=== PATIENT | female | born 1985 | race Caucasian/White ===

== ENCOUNTER 2017-05-11 20:51 | Inpatient (IN) | payer BC ==
[2017-05-11 23:28] LABS: ADD UMIC YES; UR ASCORBIC ACID NEGATIVE (NEGATIVE); UR BILIRUBIN (Dip) NEGATIVE (NEGATIVE); UR BLOOD (Dip) 1+ mg/dL (NEGATIVE); UR CLARITY SLIGHTLY CLOUDY (CLEAR); UR COLOR YELLOW (YELLOW); UR GLUCOSE (Dip) NEGATIVE (NEGATIVE); UR KETONES (Dip) NEGATIVE (NEGATIVE); UR LEUKOCYTE ESTERASE (Dip) NEGATIVE Leu/ul (NEGATIVE); UR MUCUS FEW /HPF (NONE SEEN); UR NITRITE (Dip) NEGATIVE (NEGATIVE); UR RBC 25 /HPF (0-5); UR SPECIFIC GRAVITY (Dip) 1.017 (1.003-1.030); UR SQUAMOUS EPITHELIAL CELL FEW /HPF (FEW); UR TOTAL PROTEIN (Dip) NEGATIVE (NEGATIVE); UR UROBILINOGEN (Dip) 2+ mg/dL (NEGATIVE); UR WBC 7 /HPF (0-5)
[2017-05-11 23:51] LABS: AMPHETAMINE/METHAMPHETAMINE POSITIVE (NEGATIVE); BARBITURATES NEGATIVE (NEGATIVE); BENZODIAZEPINES NEGATIVE (NEGATIVE); CANNABINOIDS NEGATIVE (NEGATIVE); COCAINE NEGATIVE (NEGATIVE); OPIATES POSITIVE (NEGATIVE)
[2017-05-12] MEDS ORDERED: HYDROCODONE/APAP (5/325) TAB PO (01:03)
[2017-05-12 01:43] LABS: ADD MAN DIFF? NO
[2017-05-12 01:51] LABS: BASOPHILS % 0.4 % (0.0-2.0); EOSINOPHILS # 0.2 10^3/ul (0.0-0.5); EOSINOPHILS % 3.4 % (0.0-7.0); HEMATOCRIT 30.7 % (37.0-47.0); HEMOGLOBIN 10.1 g/dl (12.0-16.0); LYMPHOCYTES % 37.1 % (15.0-51.0); MEAN CORPUSCULAR HEMOGLOBIN 28.7 pg (29.0-33.0); MEAN CORPUSCULAR HGB CONC 32.9 g/dl (32.0-37.0); MEAN CORPUSCULAR VOLUME 87.2 fl (82.0-101.0); MONOCYTE # 0.4 10^3/ul (0.3-0.9); MONOCYTES % 6.6 % (0.0-11.0); NEUTROPHIL # 2.8 10^3/ul (1.6-7.5); NEUTROPHILS % 52.1 % (39.0-77.0); PLATELET COUNT 290 10^3/UL (140-415); RED BLOOD COUNT 3.52 10^6/ul (4.20-5.40); RED CELL DISTRIBUTION WIDTH 14.1 % (11.5-14.5)
[2017-05-12 01:51] LABS: WHITE BLOOD COUNT 5.3 10^3/ul (4.8-10.8)
[2017-05-12 02:10] LABS: INR 0.88; PT RATIO 0.9
[2017-05-12 02:11] LABS: PARTIAL THROMBOPLASTIN TIME 29.2 Sec (25.0-35.0)
[2017-05-12 02:12] LABS: ALANINE AMINOTRANSFERASE 30 IU/L (13-69); ALBUMIN 3.2 g/dl (3.3-4.9); ALBUMIN/GLOBULIN RATIO 0.94; ALKALINE PHOSPHATASE 152 IU/L (42-121); ANION GAP 11 (8-16); ASPARTATE AMINO TRANSFERASE 23 IU/L (15-46); BILIRUBIN,INDIRECT 0.1 mg/dl (0-1.1); BILIRUBIN,TOTAL 0.1 mg/dl (0.2-1.3); BLOOD UREA NITROGEN 6 mg/dl (7-20); CALCIUM 8.7 mg/dl (8.4-10.2); CARBON DIOXIDE 27 mmol/L (21-31); CHLORIDE 103 mmol/L (97-110); GLUCOSE 84 mg/dl (70-220); POTASSIUM 3.5 mmol/L (3.5-5.1); SODIUM 137 mmol/L (135-144); TOTAL PROTEIN 6.6 g/dl (6.1-8.1); URIC ACID 3.6 mg/dl (3.1-7.9)
[2017-05-12] MEDS: LACTATED RINGER'S 1,000 ML IV ×2 (02:29→04:48)
[2017-05-12] MEDS: HYDROmorphONE 1 MG/ML SYG IV (02:30)
[2017-05-12 02:43] LABS: HEPATITIS B SURFACE ANTIGEN NEGATIVE (NEGATIVE)
[2017-05-12 03:02] LABS: HEPATITIS C VIRAL ANTIBODY REACTIVE (NEGATIVE); HIV 1&2 ANTIBODY NEGATIVE (NEGATIVE)
[2017-05-12] MEDS: BETAMET NA PHOS/AC(6 MG/ML) 5ML INJ IM (03:24)
[2017-05-12] MEDS ORDERED: OXYTOCIN 30 UNITS/LR 500 ML IV ×3 (09:30→12:30)
[2017-05-12] MEDS ORDERED: CLINDAMYCIN 900 MG/D5W (PMX) 50 ML IV (09:30)
[2017-05-12] MEDS ORDERED: CARBOPROST 250 MCG INJ IM (09:30)
[2017-05-12] MEDS ORDERED: MISOPROSTOL 200 MCG TAB PR (09:30)
[2017-05-12] MEDS ORDERED: METHYLERGONOVINE 0.2 MG INJ IM (09:30)
[2017-05-12] MEDS ORDERED: LACTATED RINGER'S 500 ML IV (12:30)
[2017-05-12 15:23] LABS: RAPID PLASMA REAGIN NONREACTIVE (NR)
[2017-05-16 12:01] LABS: RUBELLA ANTIBODY - IGM <20.00 AU/mL
== END 2017-05-12 17:32 | disposition left against medical advice (07) | DRG 781 ==
LOC: OBT 20:51 → L-D 20:53
DX: O41.03X0 Oligohydramnios, third trimester, not applicable or unspecified (principal); O12.03 Gestational edema, third trimester; Z3A.34 34 weeks gestation of pregnancy; Z76.5 Malingerer [conscious simulation]
CPT/HCPCS: 76815; 76816; 80053; 80307; 81001; 83036; 84560; 85025; 85610; 85730; 86592; 86703; 86762; 86803; 86850; 86900; 86901; 87340; 87522

== ENCOUNTER 2017-05-13 17:05 | Inpatient (IN) | payer BC ==
[2017-05-13] MEDS ORDERED: LACTATED RINGER'S 500 ML IV (18:30)
[2017-05-13] MEDS ORDERED: HYDROmorphONE 0.2 MG/ML PCA IV (19:15)
[2017-05-13] MEDS ORDERED: HYDROmorphONE 2 MG/ML SYG IM (19:20)
[2017-05-13] MEDS ORDERED: LACTATED RINGER'S 1,000 ML IV ×2 (21:58)
[2017-05-13] MEDS ORDERED: CARBOPROST 250 MCG INJ IM (22:00)
[2017-05-13] MEDS ORDERED: MISOPROSTOL 200 MCG TAB PR (22:00)
[2017-05-13] MEDS ORDERED: LIDOCAINE 1% (MPF) 30 ML INJ INJ (22:00)
[2017-05-13] MEDS ORDERED: METHYLERGONOVINE 0.2 MG INJ IM (22:00)
[2017-05-13] MEDS ORDERED: OXYTOCIN 30 UNITS/LR 500 ML IV ×4 (22:00→23:30)
[2017-05-13 22:18] LABS: ADD MAN DIFF? NO
[2017-05-13 22:19] LABS: WHITE BLOOD COUNT 6.9 10^3/ul (4.8-10.8)
[2017-05-13 22:20] LABS: BASOPHILS % 0.3 % (0.0-2.0); EOSINOPHILS # 0.1 10^3/ul (0.0-0.5); HEMATOCRIT 25.2 % (37.0-47.0); HEMOGLOBIN 8.5 g/dl (12.0-16.0); LYMPHOCYTES # 2.2 10^3/ul (0.8-2.9); MEAN CORPUSCULAR HEMOGLOBIN 29.4 pg (29.0-33.0); MEAN CORPUSCULAR HGB CONC 33.7 g/dl (32.0-37.0); MEAN CORPUSCULAR VOLUME 87.2 fl (82.0-101.0); MEAN PLATELET VOLUME 8.2 fl (7.4-10.4); MONOCYTE # 0.6 10^3/ul (0.3-0.9); MONOCYTES % 8.4 % (0.0-11.0); NEUTROPHILS % 57.9 % (39.0-77.0); PLATELET COUNT 281 10^3/UL (140-415); RED BLOOD COUNT 2.89 10^6/ul (4.20-5.40); RED CELL DISTRIBUTION WIDTH 14.4 % (11.5-14.5)
[2017-05-13 22:23] LABS: INR 0.91; PROTIME 12.3 Sec (11.9-14.9)
[2017-05-13 22:24] LABS: PARTIAL THROMBOPLASTIN TIME 27.2 Sec (25.0-35.0)
[2017-05-13] MEDS: LACTATED RINGER'S 500 ML IV (22:31)
[2017-05-13] MEDS: CEFAZOLIN 2 GM/50 ML (PMX) 50 ML IVPB (22:59)
[2017-05-13] MEDS ORDERED: FENTAnyl 2MCG/ML-ROPIV 0.2% 0 ML (23:33)
[2017-05-14] MEDS: CLINDAMYCIN 900 MG/D5W (PMX) 50 ML IV ×3 (00:24→14:50)
[2017-05-14] MEDS: HYDROmorphONE 2 MG/ML SYG IV (00:24)
[2017-05-14 01:44] LABS: HEPATITIS B SURFACE ANTIGEN NEGATIVE (NEGATIVE)
[2017-05-14] MEDS: HYDROmorphONE 2 MG/ML SYG IM (03:54)
[2017-05-14] MEDS: LACTATED RINGER'S 1,000 ML IV ×3 (05:57→21:15)
[2017-05-14] MEDS: CEFAZOLIN 2 GM/50 ML (PMX) 50 ML IVPB ×2 (05:57→13:30)
[2017-05-14] MEDS: LACTATED RINGER'S 500 ML IV ×2 (05:58→06:01)
[2017-05-14] MEDS ORDERED: BENZOCAINE 20% 9.5 GM GEL MM (13:00)
[2017-05-14 13:59] LABS: HIV 1&2 ANTIBODY NEGATIVE (NEGATIVE)
[2017-05-14] MEDS: BENZOCAINE MM (15:08)
[2017-05-14] MEDS: [UNRECOGNIZED DRUG - OTHER] MM (15:08)
[2017-05-14] MEDS: BETAMET NA PHOS/AC(6 MG/ML) 5ML INJ IM (17:30)
[2017-05-14 22:26] LABS: RAPID PLASMA REAGIN NONREACTIVE (NR)
[2017-05-15] MEDS: LACTATED RINGER'S 1,000 ML IV ×3 (05:15→22:10)
[2017-05-15] MEDS: DIPHENHYDRAMINE 50 MG INJ IV (13:01)
[2017-05-15] MEDS: HYDROmorphONE 2 MG/ML SYG IV (20:55)
[2017-05-15] MEDS: LACTATED RINGER'S 500 ML IV ×10 (20:59→22:10)
[2017-05-15] MEDS: CLINDAMYCIN 600 MG/D5W (PMX) 50 ML IVPB (22:45)
[2017-05-16] MEDS: DIPHENHYDRAMINE 50 MG INJ IV ×3 (00:32→17:15)
[2017-05-16] MEDS: CEFAZOLIN 2 GM/50 ML (PMX) 50 ML IVPB ×3 (00:32→15:30)
[2017-05-16] MEDS: LACTATED RINGER'S 1,000 ML IV (00:33)
[2017-05-16] MEDS: LACTATED RINGER'S 500 ML IV ×4 (01:58→13:58)
[2017-05-16] MEDS: CLINDAMYCIN 600 MG/D5W (PMX) 50 ML IVPB ×2 (06:27→13:52)
[2017-05-16] MEDS: BETAMET NA PHOS/AC(6 MG/ML) 5ML INJ IM (09:08)
[2017-05-16] MEDS ORDERED: HYDROmorphONE 1 MG/ML SYG (09:48)
[2017-05-16] MEDS: HYDROmorphONE 1 MG/ML SYG IV (10:13)
[2017-05-16 11:16] LABS: RUBELLA ANTIBODY - IGG 3.82 index
[2017-05-16 12:01] LABS: RUBELLA ANTIBODY - IGM <20.00 AU/mL
[2017-05-16] MEDS: HYDROmorphONE 2 MG/ML SYG IV (19:08)
[2017-05-16] MEDS ORDERED: HYDROmorphONE 2 MG/ML SYG IV (19:11)
[2017-05-16] MEDS ORDERED: SALINE 0.65% 45 ML NAS SPRAY NASAL (19:30)
[2017-05-16] MEDS ORDERED: HYDROmorphONE 1 MG/ML SYG IV (19:30)
[2017-05-16] MEDS ORDERED: HYDROmorphONE 0.5 MG/0.5 ML SYG IV (19:55)
[2017-05-16] MEDS: HYDROmorphONE 0.5 MG/0.5 ML SYG IV (20:19)
[2017-05-16] MEDS: [UNRECOGNIZED DRUG - OTHER] MM (22:13)
[2017-05-16] MEDS: BENZOCAINE MM (22:13)
[2017-05-17] MEDS: HYDROmorphONE 0.5 MG/0.5 ML SYG IV ×4 (00:54→23:15)
[2017-05-17] MEDS: LACTATED RINGER'S 1,000 ML IV ×4 (00:57→19:55)
[2017-05-17] MEDS: LACTATED RINGER'S 500 ML IV ×6 (01:58→21:58)
[2017-05-17] MEDS: DIPHENHYDRAMINE 50 MG INJ IV ×2 (03:43→20:39)
[2017-05-17 18:23] LABS: ADD MAN DIFF? NO
[2017-05-17 18:24] LABS: WHITE BLOOD COUNT 9.2 10^3/ul (4.8-10.8)
[2017-05-17 18:24] LABS: BASOPHILS % 0.2 % (0.0-2.0); EOSINOPHILS % 0.3 % (0.0-7.0); HEMOGLOBIN 8.7 g/dl (12.0-16.0); LYMPHOCYTES # 1.9 10^3/ul (0.8-2.9); LYMPHOCYTES % 20.9 % (15.0-51.0); MEAN CORPUSCULAR HEMOGLOBIN 29.7 pg (29.0-33.0); MEAN CORPUSCULAR HGB CONC 33.5 g/dl (32.0-37.0); MEAN CORPUSCULAR VOLUME 88.7 fl (82.0-101.0); MEAN PLATELET VOLUME 8.3 fl (7.4-10.4); MONOCYTE # 0.6 10^3/ul (0.3-0.9); MONOCYTES % 6.3 % (0.0-11.0); NEUTROPHIL # 6.6 10^3/ul (1.6-7.5); NEUTROPHILS % 71.8 % (39.0-77.0); NUCLEATED RED BLOOD CELLS% 0.2 /100WBC (0.0-0.0); PLATELET COUNT 239 10^3/UL (140-415); RED BLOOD COUNT 2.93 10^6/ul (4.20-5.40); RED CELL DISTRIBUTION WIDTH 13.6 % (11.5-14.5)
[2017-05-17 18:52] LABS: GLUCOSE 83 mg/dl (70-220)
[2017-05-17] MEDS: DOCUSATE SODIUM 100 MG CAP PO (20:51)
[2017-05-17] MEDS: FERROUS SULFATE (EC) 325 MG TAB PO (20:51)
[2017-05-17] MEDS: AL HYDROX/MG HYDROX/SIMETH 30 ML CUP PO (21:34)
[2017-05-17] MEDS: FAMOTIDINE 20 MG TAB PO (22:21)
[2017-05-18] MEDS: LACTATED RINGER'S 500 ML IV ×4 (01:44→09:58)
[2017-05-18] MEDS: LACTATED RINGER'S 1,000 ML IV ×3 (03:55→11:55)
[2017-05-18] MEDS: HYDROmorphONE 0.5 MG/0.5 ML SYG IV ×3 (04:01→15:13)
[2017-05-18] MEDS: BENZOCAINE MM ×2 (08:25→20:53)
[2017-05-18] MEDS: [UNRECOGNIZED DRUG - OTHER] MM ×2 (08:25→20:53)
[2017-05-18] MEDS: FERROUS SULFATE (EC) 325 MG TAB PO ×2 (09:00→20:52)
[2017-05-18] MEDS: PRENATAL VITAMIN PO (09:00)
[2017-05-18] MEDS: DIPHENHYDRAMINE 50 MG INJ IV ×2 (09:28→17:36)
[2017-05-18] MEDS: AL HYDROX/MG HYDROX/SIMETH 30 ML CUP PO (20:52)
[2017-05-18] MEDS ORDERED: HYDROCODONE/APAP (5/325) TAB PO (22:00)
[2017-05-18] MEDS: OXYCODONE/ASPIRIN (4.88/325) TAB PO (22:21)
[2017-05-19] MEDS: LORAZEPAM 0.5 MG TAB PO ×2 (00:59→14:54)
[2017-05-19] MEDS: morphine 10 MG INJ IM (03:40)
[2017-05-19] MEDS: SOD CHLORIDE 0.9% 1,000 ML IV ×2 (06:06→23:10)
[2017-05-19] MEDS: DIPHENHYDRAMINE 50 MG INJ IV ×3 (06:14→23:10)
[2017-05-19] MEDS: FERROUS SULFATE (EC) 325 MG TAB PO ×2 (09:00→20:23)
[2017-05-19] MEDS: PRENATAL VITAMIN PO ×2 (09:00→14:00)
[2017-05-19] MEDS: morphine 2 MG INJ IV ×3 (12:07→20:24)
[2017-05-19] MEDS: CLINDAMYCIN 900 MG/D5W (PMX) 50 ML IVPB ×2 (12:07→22:20)
[2017-05-19] MEDS: BENZOCAINE MM (12:16)
[2017-05-19] MEDS: [UNRECOGNIZED DRUG - OTHER] MM (12:16)
[2017-05-19] MEDS: AL HYDROX/MG HYDROX/SIMETH 30 ML CUP PO (20:23)
[2017-05-20] MEDS: [UNRECOGNIZED DRUG - OTHER] MM ×2 (00:12→06:51)
[2017-05-20] MEDS: BENZOCAINE MM ×2 (00:12→06:51)
[2017-05-20] MEDS: morphine 2 MG INJ IV ×3 (00:50→08:32)
[2017-05-20] MEDS: SOD CHLORIDE 0.9% 1,000 ML IV (02:00)
[2017-05-20] MEDS: CLINDAMYCIN 900 MG/D5W (PMX) 50 ML IVPB (05:49)
[2017-05-20] MEDS: DIPHENHYDRAMINE 50 MG INJ IV (06:46)
[2017-05-20] MEDS: FERROUS SULFATE (EC) 325 MG TAB PO (09:00)
== END 2017-05-20 13:35 | disposition home or self-care (01) | DRG 781 ==
LOC: PP1 05-16 13:03 → OBT 17:05 → L-D 17:07 → OBT 21:49 → L-D 21:38
PROVIDERS: Obstetrics & Gynecology
DX: O41.03X0 Oligohydramnios, third trimester, not applicable or unspecified (principal); O99.323 Drug use complicating pregnancy, third trimester; Z3A.35 35 weeks gestation of pregnancy; F15.90 Other stimulant use, unspecified, uncomplicated; F41.9 Anxiety disorder, unspecified; F25.9 Schizoaffective disorder, unspecified; K08.89 Other specified disorders of teeth and supporting structures; R03.0 Elevated blood-pressure reading, without diagnosis of hypertension
CPT/HCPCS: 36415; 76815; 76816; 76818; 82947; 85025; 85610; 85730; 86592; 86703; 86762; 87340; 87522; 93970

== ENCOUNTER 2017-05-25 04:07 | Inpatient (IN) | payer BC ==
[2017-05-25] MEDS ORDERED: LIDOCAINE 1% (MPF) 30 ML INJ (04:14)
[2017-05-25] MEDS ORDERED: OXYTOCIN 30 UNITS/LR 500 ML IV ×5 (04:14→04:37)
[2017-05-25] MEDS ORDERED: LACTATED RINGER'S 1,000 ML IV (04:16)
[2017-05-25] MEDS ORDERED: CARBOPROST 250 MCG INJ IM ×2 (04:30→05:00)
[2017-05-25] MEDS ORDERED: MISOPROSTOL 200 MCG TAB PR ×2 (04:30→05:00)
[2017-05-25] MEDS ORDERED: METHYLERGONOVINE 0.2 MG INJ IM (04:30)
[2017-05-25] MEDS ORDERED: HYDROmorphONE 2 MG/ML SYG (04:36)
[2017-05-25] MEDS ORDERED: HYDROmorphONE 0.5 MG/0.5 ML SYG SC (05:00)
[2017-05-25] MEDS ORDERED: ONDANSETRON 4 MG INJ IV (05:00)
[2017-05-25] MEDS ORDERED: ZOLPIDEM 5 MG TAB PO (05:00)
[2017-05-25 05:11] LABS: ADD MAN DIFF? NO
[2017-05-25 05:19] LABS: BASOPHIL # 0.1 10^3/ul (0.0-0.1); BASOPHILS % 0.4 % (0.0-2.0); CBV Base Excess -4.4 mmol/L; CBV Oxygen Sat 56.3 mmHG; CBV Total Hemglobin 13.3 g/dl; Cord Blood Venous pO2 24.8 mmHG (15.0-45.0); EOSINOPHILS # 0.2 10^3/ul (0.0-0.5); EOSINOPHILS % 1.3 % (0.0-7.0); Fraction OxyHgb Cord Venous 54.4 %; HEMATOCRIT 28.2 % (37.0-47.0); HEMOGLOBIN 9.4 g/dl (12.0-16.0); LYMPHOCYTES # 2.7 10^3/ul (0.8-2.9); LYMPHOCYTES % 21.4 % (15.0-51.0); MEAN CORPUSCULAR HEMOGLOBIN 29.2 pg (29.0-33.0); MEAN CORPUSCULAR HGB CONC 33.3 g/dl (32.0-37.0); MEAN CORPUSCULAR VOLUME 87.6 fl (82.0-101.0); MEAN PLATELET VOLUME 8.3 fl (7.4-10.4); MODE ROOM AIR; MONOCYTE # 1.2 10^3/ul (0.3-0.9); MetHgb Cord Venous 1.3 %; NEUTROPHIL # 8.6 10^3/ul (1.6-7.5); NEUTROPHILS % 67.3 % (39.0-77.0); PLATELET COUNT 312 10^3/UL (140-415); RED BLOOD COUNT 3.22 10^6/ul (4.20-5.40); RED CELL DISTRIBUTION WIDTH 14.3 % (11.5-14.5); Sample Type Blood venous; Site CORD
[2017-05-25 05:19] LABS: WHITE BLOOD COUNT 12.8 10^3/ul (4.8-10.8)
[2017-05-25] MEDS: OXYTOCIN 30 UNITS/LR 500 ML IV ×6 (05:20→22:00)
[2017-05-25 05:23] LABS: AADO2 Cord Arterial 66.5 mmHg; Arterial Cord Blood pCO2 54.7 mmHG (25-50); CBA Base Excess -6.5 mmol/L; CBA COHb 1.2 %; CBA Oxygen Sat 30.5 mmHG; CBA Total Hemglobin 12.8 g/dl; Cord Blood Arterial pO2 17.7 mmHG (15.0-45.0); Fraction OxyHgb Cord Arterial 29.5 %; MODE ROOM AIR; MetHgb Cord Arterial 2.2 %; Sample Type CBA; Site CORD
[2017-05-25 05:41] LABS: INR 0.92; PROTIME 12.4 Sec (11.9-14.9)
[2017-05-25] MEDS: HYDROmorphONE 2 MG/ML SYG IV ×2 (05:42→06:39)
[2017-05-25 05:52] LABS: BARBITURATES Negative (NEGATIVE)
[2017-05-25 05:59] LABS: BENZODIAZEPINES Negative (NEGATIVE); CANNABINOIDS Negative (NEGATIVE); COCAINE Negative (NEGATIVE); OPIATES Positive (NEGATIVE)
[2017-05-25 06:05] LABS: AMPHETAMINE/METHAMPHETAMINE POSITIVE (NEGATIVE)
[2017-05-25 08:35] LABS: INR 0.95; PROTIME 12.8 Sec (11.9-14.9)
[2017-05-25 08:36] LABS: PARTIAL THROMBOPLASTIN TIME 25.6 Sec (25.0-35.0)
[2017-05-25 08:48] LABS: ALANINE AMINOTRANSFERASE 28 IU/L (13-69); ALBUMIN 2.9 g/dl (3.3-4.9); ALBUMIN/GLOBULIN RATIO 1.03; ALKALINE PHOSPHATASE 118 IU/L (42-121); ANION GAP 11 (8-16); ASPARTATE AMINO TRANSFERASE 17 IU/L (15-46); BILIRUBIN,INDIRECT 0.1 mg/dl (0-1.1); BILIRUBIN,TOTAL 0.1 mg/dl (0.2-1.3); BLOOD UREA NITROGEN 10 mg/dl (7-20); CALCIUM 8.4 mg/dl (8.4-10.2); CARBON DIOXIDE 22 mmol/L (21-31); CHLORIDE 107 mmol/L (97-110); CREATININE 0.47 mg/dl (0.44-1.00); GLUCOSE 83 mg/dl (70-220); POTASSIUM 3.8 mmol/L (3.5-5.1); SODIUM 136 mmol/L (135-144); TOTAL PROTEIN 5.7 g/dl (6.1-8.1); URIC ACID 2.9 mg/dl (3.1-7.9)
[2017-05-25] MEDS: WITCH HAZEL/GLYCERIN PAD PR (09:17)
[2017-05-25] MEDS: SENNA/DOCUSATE NA (8.6MG/50MG) TAB PO ×2 (10:24→21:00)
[2017-05-25 11:55] LABS: ADD UMIC YES; UR ASCORBIC ACID NEGATIVE (NEGATIVE); UR BACTERIA FEW /HPF (NONE SEEN); UR BILIRUBIN (Dip) NEGATIVE (NEGATIVE); UR BLOOD (Dip) 3+ mg/dL (NEGATIVE); UR CLARITY SLIGHTLY CLOUDY (CLEAR); UR COLOR YELLOW (YELLOW); UR GLUCOSE (Dip) NEGATIVE (NEGATIVE); UR KETONES (Dip) NEGATIVE (NEGATIVE); UR LEUKOCYTE ESTERASE (Dip) TRACE Leu/ul (NEGATIVE); UR MUCUS FEW /HPF (NONE SEEN); UR NITRITE (Dip) NEGATIVE (NEGATIVE); UR RBC > 182 /HPF (0-5); UR SPECIFIC GRAVITY (Dip) 1.018 (1.003-1.030); UR TOTAL PROTEIN (Dip) 1+ mg/dl (NEGATIVE); UR UROBILINOGEN (Dip) NEGATIVE (NEGATIVE); UR WBC 23 /HPF (0-5)
[2017-05-25 12:42] LABS: HEPATITIS B SURFACE ANTIGEN NEGATIVE (NEGATIVE)
[2017-05-25] MEDS: DIPHENHYDRAMINE 25 MG CAP PO (13:26)
[2017-05-25] MEDS ORDERED: DIPHENHYDRAMINE 50 MG INJ IV (15:00)
[2017-05-25] MEDS: HYDROmorphONE 0.5 MG/0.5 ML SYG IV (15:27)
[2017-05-25] MEDS: HYDROmorphONE 1 MG/ML SYG IV ×3 (17:58→23:31)
[2017-05-25 19:43] LABS: RAPID PLASMA REAGIN NONREACTIVE (NR)
[2017-05-26] MEDS: HYDROmorphONE 1 MG/ML SYG IV ×2 (01:49→05:59)
[2017-05-26] MEDS: OXYTOCIN 30 UNITS/LR 500 ML IV (02:00)
[2017-05-26] MEDS: SENNA/DOCUSATE NA (8.6MG/50MG) TAB PO (08:25)
[2017-05-26] MEDS: MEASLES,MUMPS,RUBELLA VACCINE INJ SC* (09:41)
[2017-05-26] MEDS: VARICELLA VACCINE LIVE/PF 1,350 UNIT/0.5 ML ML SC* (09:41)
[2017-05-26] MEDS ORDERED: OXYCODONE/ASPIRIN (4.88/325) TAB PO ×2 (10:00→11:00)
== END 2017-05-26 16:30 | disposition left against medical advice (07) | DRG 775 ==
LOC: OBT 04:07 → L-D 04:08 → OBT 04:11 → L-D 04:12
PROVIDERS: Obstetrics & Gynecology Obstetrics
PROC: 10E0XZZ Delivery of Products of Conception, External Approach (ICD-10-PCS; principal; 2017-05-25)
PROC: 0HQ9XZZ Repair Perineum Skin, External Approach (ICD-10-PCS; 2017-05-25)
PROC: 0UQMXZZ Repair Vulva, External Approach (ICD-10-PCS; 2017-05-25)
PROC: 3E033VJ Introduction of Other Hormone into Peripheral Vein, Percutaneous Approach (ICD-10-PCS; 2017-05-25)
DX: O70.0 First degree perineal laceration during delivery (principal); O60.14X0 Preterm labor third trimester with preterm delivery third trimester, not applicable or unspecified; Z3A.36 36 weeks gestation of pregnancy; Z37.0 Single live birth
CPT/HCPCS: 36415; 36600; 80053; 80307; 81001; 82803; 84560; 85025; 85610; 85730; 86592; 86850; 86900; 86901; 87070; 87340; 88307; 99464

== ENCOUNTER 2018-02-22 13:33 | Emergency (ER) | payer OTHER, MEDICAID, BC ==
[2018-02-22 14:06] LABS: ADD MAN DIFF? NO
[2018-02-22 14:11] LABS: BASOPHILS % 0.7 % (0.0-2.0); EOSINOPHILS # 0.2 10^3/ul (0.0-0.5); EOSINOPHILS % 3.6 % (0.0-7.0); HEMATOCRIT 34.2 % (37.0-47.0); HEMOGLOBIN 12.1 g/dl (12.0-16.0); LYMPHOCYTES # 1.3 10^3/ul (0.8-2.9); LYMPHOCYTES % 23.4 % (15.0-51.0); MEAN CORPUSCULAR HEMOGLOBIN 31.4 pg (29.0-33.0); MEAN CORPUSCULAR HGB CONC 35.4 g/dl (32.0-37.0); MEAN CORPUSCULAR VOLUME 88.8 fl (82.0-101.0); MEAN PLATELET VOLUME 8.1 fl (7.4-10.4); MONOCYTE # 0.4 10^3/ul (0.3-0.9); MONOCYTES % 7.5 % (0.0-11.0); NEUTROPHIL # 3.6 10^3/ul (1.6-7.5); NEUTROPHILS % 64.6 % (39.0-77.0); PLATELET COUNT 271 10^3/UL (140-415); RED BLOOD COUNT 3.85 10^6/ul (4.20-5.40); RED CELL DISTRIBUTION WIDTH 12.9 % (11.5-14.5)
[2018-02-22 14:11] LABS: WHITE BLOOD COUNT 5.6 10^3/ul (4.8-10.8)
[2018-02-22] MEDS: FAMOTIDINE 20 MG TAB PO (14:12)
[2018-02-22] MEDS: SOD CHLORIDE 0.9% 1,000 ML IV (14:12)
[2018-02-22] MEDS: morphine 2 MG INJ IV (14:12)
[2018-02-22] MEDS: ONDANSETRON 4 MG INJ IV (14:12)
[2018-02-22 14:17] LABS: ADD UMIC YES; UR ASCORBIC ACID NEGATIVE (NEGATIVE); UR BILIRUBIN (Dip) NEGATIVE (NEGATIVE); UR BLOOD (Dip) 3+ mg/dL (NEGATIVE); UR CLARITY CLEAR (CLEAR); UR COLOR YELLOW (YELLOW); UR GLUCOSE (Dip) NEGATIVE (NEGATIVE); UR KETONES (Dip) NEGATIVE (NEGATIVE); UR LEUKOCYTE ESTERASE (Dip) TRACE Leu/ul (NEGATIVE); UR NITRITE (Dip) NEGATIVE (NEGATIVE); UR RBC 11 /HPF (0-5); UR SPECIFIC GRAVITY (Dip) 1.017 (1.003-1.030); UR TOTAL PROTEIN (Dip) NEGATIVE (NEGATIVE); UR UROBILINOGEN (Dip) NEGATIVE (NEGATIVE); UR WBC 1 /HPF (0-5)
[2018-02-22 14:28] LABS: ALANINE AMINOTRANSFERASE 14 IU/L (13-69); ALBUMIN 4.4 g/dl (3.3-4.9); ALBUMIN/GLOBULIN RATIO 1.29; ALKALINE PHOSPHATASE 59 IU/L (42-121); ANION GAP 10 (5-13); ASPARTATE AMINO TRANSFERASE 19 IU/L (15-46); BILIRUBIN,INDIRECT 0.2 mg/dl (0-1.1); BILIRUBIN,TOTAL 0.2 mg/dl (0.2-1.3); BLOOD UREA NITROGEN 20 mg/dl (7-20); CALCIUM 8.6 mg/dl (8.4-10.2); CARBON DIOXIDE 23 mmol/L (21-31); CHLORIDE 107 mmol/L (97-110); CREATININE 0.43 mg/dl (0.44-1.00); Estimated GFR > 60 mL/min (>60); GLUCOSE 131 mg/dl (70-220); LIPASE 138 U/L (23-300); POTASSIUM 4.1 mmol/L (3.5-5.1); SODIUM 140 mmol/L (135-144); TOTAL PROTEIN 7.8 g/dl (6.1-8.1)
== END 2018-02-22 15:50 | disposition home or self-care (01) ==
LOC: FTE 13:33
DX: R10.32 Left lower quadrant pain (principal); N94.6 Dysmenorrhea, unspecified; R11.2 Nausea with vomiting, unspecified; Z91.040 Latex allergy status
CPT/HCPCS: 74176; 80053; 81001; 81025; 83690; 85025; 96361; 96374; 96375; 99285-25